=== PATIENT | male | born 1980 | race Caucasian/White ===

== ENCOUNTER 2022-07-29 08:24 | Emergency (ER) | payer OTHER, MEDICAID ==
[~2022-07-29] VITALS: Ht 180.3 cm; Wt 91.4 kg
[2022-07-29] MEDS ORDERED: COREG25 MG PO (08:50)
[2022-07-29] MEDS ORDERED: COREG6.25 MG PO (08:51)
== END 2022-07-29 09:14 | disposition home or self-care (01) ==
LOC: ED 08:24
DX: K40.90 Unilateral inguinal hernia, without obstruction or gangrene, not specified as recurrent (principal); Z79.899 Other long term (current) drug therapy
CPT/HCPCS: 99283